=== PATIENT | male | born 1945 | race American Indian/Alaskan Native ===

== ENCOUNTER 2020-03-06 12:21 | Emergency (ER) | payer MEDICARE ==
[2020-03-06 12:28] VITALS: BP 127/76
--- NOTE | 2020-03-06 12:33 | Event Note ---
ED Screening Note ED Screening Note: states that he tripped and fell yesterday states he fell onto the ground states he fell onto right shoulder states he has had issues in the right shoulder before PMHx BPH, HTN no allergies to meds This initial assessment/diagnostic orders/clinical plan/treatment(s) is/are subject to change based on patients health status, clinical progression and re- assessment by fellow clinical providers in the ED. Further treatment and workup at subsequent clinical providers discretion. Patient/guardian urged not to elope from the ED as their condition may be serious if not clinically assessed and managed. Initial orders include: XR right shoulder
--- NOTE | 2020-03-06 13:23 | XRay Report ---
RIGHT SHOULDER 3 VIEWS INDICATION: fall onto right shoulder. COMPARISON: None. IMPRESSION: No acute osseous or soft tissue abnormality. Minimal osteoarthritic changes are ident ified. Signer Name: Morris Carrillo Jr, MD Signed: 03/06/2020 1:19 PM Workstation Name: [id number]
[2020-03-06] MEDS ORDERED: IBUPROFEN 800 MG TAB PO ONE (13:44)
--- NOTE | 2020-03-06 13:44 | Emergency Department Report ---
ED Upper Extremity Inj HPI - General Chief Complaint: Extremity Injury, Upper Stated Complaint: RT SHOULDER PAIN Time Seen by Provider: 03/06/20 12:31 Source: patient Mode of arrival: Ambulatory Limitations: No Limitations - History of Present Illness Initial Comments: Mr. Smith is a pleasant 74-year-old -[place] male. Patient appears much younger than his stated age. He is quite active and spry for his 74 years. He comes to the ER today after stumbling in his garage and falling yesterday. He states that he got tripped on some equipment. His family was at the house when he fell. He got up immediately. He did not hit his head. Patient is on no blood thinners. Patient comes to the ER today complaining of right shoulder pain. Denies any other pain or injury. Patient denies any recent cough, fever, chills, chest pain, shortness of breath, dizziness. MD Complaint: Injury to:: right -: Sudden, days(s) Other Extremity Injury: Shoulder: Right Other Injuries: none Handedness: right Place: home Improves With: immobilization Worsens With: movement of extremity Context: fall Associated Symptoms: denies other symptoms - Related Data Allergies Allergy/AdvReac Type Severity Reaction Status Date / Time No Known Allergies Allergy Unverified 03/06/20 12:23 ED Review of Systems ROS: Stated complaint: RT SHOULDER PAIN Other details as noted in HPI Comment: All other systems reviewed and negative ED Past Medical Hx - Past Medical History Previous Medical History?: Yes Hx Hypertension: Yes - Surgical History Past Surgical History?: Yes Hx Cholecystectomy: Yes Additional Surgical History: LEFT ARM - Family History Family history: no significant - Social History Smoking Status: Never Smoker Substance Use Type: None ED Physical Exam - General Limitations: No Limitations General appearance: alert, in no apparent distress - Head Head exam: Present: atraumatic, normocephalic - Eye Eye exam: Present: normal appearance - ENT ENT exam: Present: mucous membranes moist - Neck Neck exam: Present: normal inspection - Respiratory Respiratory exam: Present: normal lung sounds bilaterally. Absent: respiratory distress - Cardiovascular Cardiovascular Exam: Present: regular rate, normal rhythm. Absent: systolic murmur, diastolic murmur, rubs, gallop - GI/Abdominal GI/Abdominal exam: Present: soft, normal bowel sounds - Rectal Rectal exam: Present: deferred - Extremities Exam Extremities exam: Present: normal inspection - Expanded Upper Extremity Exam Right General: Present: other Shoulder Exam: Present: other (states he can not raise shoulder). Absent: full ROM, tenderness, swelling, abrasion, laceration, ecchymosis, deformity, crepidus, dislocation, erythema, tenderness over AC joint Upper Arm exam: Present: normal inspection - Back Exam Back exam: Present: normal inspection - Neurological Exam Neurological exam: Present: alert, oriented X3 - Psychiatric Psychiatric exam: Present: normal affect, normal mood - Skin Skin exam: Present: warm, dry, intact, normal color. Absent: rash ED Course Vital Signs 03/06/20 12:27 Temperature 98.0 F Pulse Rate 83 Respiratory 20 Rate Blood Pressure 127/76 O2 Sat by Pulse 96 Oximetry ED Medical Decision Making - Radiology Data Radiology results: report reviewed, image reviewed no fx - Medical Decision Making xray negative based on clinical exam and dec rom will sling. Patient can move the arm but he reports pain with raising it against gravity. Patient being discharged home with NSAIDs for pain and follow up with Dr Franco for repeat imaging and evaluation neurovasc intact with normal radial and ulnar pulses. Rapid cap refill. Full range of motion of the distal extremity. Medicated with Motrin in the ER for pain. Patient being discharged home with discharge plan of care. Vital Signs 03/06/20 12:27 Temperature 98.0 F Pulse Rate 83 Respiratory 20 Rate Blood Pressure 127/76 O2 Sat by Pulse 96 Oximetry - Differential Diagnosis ro fx Critical care attestation.: If time is entered above; I have spent that time in minutes in the direct care of this critically ill patient, excluding procedure time. ED Disposition Clinical Impression: Shoulder contusion, Fall from ground level, Accident due to mechanical fall without injury Disposition: DC-01 TO HOME OR SELFCARE Is pt being admited?: No Does the pt Need Aspirin: No Condition: Stable Additional Instructions: sling ice rest elevate over the counter motrin- with food for pain and inflammation call Dr Franco, referral below he will reevaluate you to be sure you are feeling better Referrals: HERMINIO FRANCO MD [Staff Physician] - 3-5 Days Time of Disposition: 13:49
== END 2020-03-06 14:09 | disposition home or self-care (01) ==
LOC: ED 12:21
DX: S40.011A Contusion of right shoulder, initial encounter (principal); I10 Essential (primary) hypertension; Z90.49 Acquired absence of other specified parts of digestive tract; Z98.890 Other specified postprocedural states; W18.39XA Other fall on same level, initial encounter; Y93.89 Activity, other specified; Y92.098 Other place in other non-institutional residence as the place of occurrence of the external cause; Y99.8 Other external cause status